=== PATIENT | female | born 2000 | race African-American/Black ===

== ENCOUNTER 2023-07-19 11:45 | Outpatient (CLI) | payer OTHER ==
[2023-07-20 01:32] LABS: BACTERIAL VAGINOSIS DNA NEGATIVE (NEGATIVE); CANDIDA GLABRATA DNA NEGATIVE (NEGATIVE); CANDIDA GROUP DNA POSITIVE (NEGATIVE); CANDIDA KRUSEI DNA NEGATIVE (NEGATIVE); TRICHOMONAS VAGINALIS DNA NEGATIVE (NEGATIVE)
== END 2023-07-19 12:00 | disposition home or self-care (01) ==
LOC: LAB.N 11:45
PROVIDERS: ATTEND Nurse Practitioner
DX: N89.8 Other specified noninflammatory disorders of vagina (principal)
CPT/HCPCS: 81514

== ENCOUNTER 2023-09-22 19:44 | Emergency (ER) | payer OTHER ==
[2023-09-22 20:02] VITALS: O2SAT 100
[2023-09-22 20:09] LABS: BASOPHILS % (AUTO) 0.5 %; EOSINOPHILS % (AUTO) 0.6 %; HGB - HEMOGLOBIN 12.7 g/dL (12.0-16.0); LYMPHOCYTES # (AUTO) 2.1 10^3/uL (1.5-3.5); LYMPHOCYTES % (AUTO) 31.7 %; MEAN CORPUSCULAR HEMOGLOBIN 29.3 pg (27.0-31.0); MEAN CORPUSCULAR HGB CONC 31.8 g/dL (32.0-36.0); MEAN CORPUSCULAR VOLUME 92.2 fL (81.0-99.0); MEAN PLATELET VOLUME 9.4 fL (7.9-10.8); MONOCYTES # (AUTO) 0.5 10^3/uL (0.0-1.0); NEUTROPHILS % (AUTO) 59.7 %; PLT - PLATELET COUNT 381 10^3/uL (130-450); RED BLOOD COUNT 4.34 10^6/uL (4.20-5.40); RED CELL DISTRIBUTION WIDTH 11.8 % (12.0-15.0); WHITE BLOOD COUNT 6.6 x10^3/uL (4.8-10.8)
[2023-09-22 20:23] LABS: BILIRUBIN,URINE NEGATIVE (NEGATIVE); GLUCOSE, URINE (UA) NEGATIVE (NEGATIVE); KETONES,URINE (UA) NEGATIVE (NEGATIVE); LEUKOCYTE ESTERASE, URINE NEGATIVE (NEGATIVE); NITRITE,URINE NEGATIVE (NEGATIVE); OCCULT BLOOD,URINE LARGE (NEGATIVE); PH,URINE 6.5 PH (5.0-7.5); PROTEIN,URINE NEGATIVE (NEGATIVE); UROBILINOGEN,URINE 1 (NORMAL) E.U./dL (NORMAL)
[2023-09-22 20:24] LABS: ALBUMIN 4.3 g/dL (3.2-5.5); ALBUMIN/GLOBULIN RATIO 1.2 (1.0-2.2); BILIRUBIN,TOTAL 0.2 mg/dL (0.2-1.0); CALCIUM 9.8 mg/dL (8.5-10.3); CREATININE 0.8 mg/dL (0.6-1.3); POTASSIUM 3.7 mmol/L (3.5-4.5); TOTAL PROTEIN 7.9 g/dL (6.4-8.9)
[2023-09-22 20:25] LABS: CLARITY,URINE HAZY (CLEAR); HCG UR QUAL NEGATIVE
[2023-09-22 20:36] LABS: BACTERIA,URINE Few /HPF (None Seen); RBC,URINE TNTC /HPF (0-5); SQUAMOUS EPITHELIAL CELL,UR FEW Squamous (<= Few)
[2023-09-22] MEDS: KETOROLAC 30 MG/ML VIAL IM STA (20:44)
--- NOTE | 2023-09-22 20:59 | ED Physician Documentation ---
History of Present Illness - Stated complaint Stated Complaint: LOWER ABD PX - Chief complaint Chief Complaint: Abd Pain - History obtained from History obtained from: Patient - Additonal information Additional information: 23yF previously healthy p/w R lower abdominal pain, pulsing intermittently and radiating to LLQ and lower back X 3 days, not improving with PO tylenol and nsaids. denies n/v/d urinary sx, fever. patient is currently menstruating. lmp 09/18. PD PAST MEDICAL HISTORY - Past Medical History Past Medical History: No Cardiovascular: None Respiratory: None Neuro: None Endocrine/Autoimmune: None GI: None [employer]AF[employer]: None : None HEENT: None Psych: None Musculoskeletal: None Derm: None - Past Surgical History Past Surgical History: No - Present Medications Home Medications: Ambulatory Orders Medication Instructions Recorded Confirmed No Known Home Medications 09/22/23 09/22/23 - Allergies Allergies/Adverse Reactions: Allergies Allergy/AdvReac Type Severity Reaction Status Date / Time No Known Drug Allergies Allergy Verified 09/22/23 19:54 - Social History Does the pt smoke?: No Smoking Status: Never smoker Does the pt drink ETOH?: No Does the pt have substance abuse?: No - Immunizations Immunizations are current?: Yes - POLST Patient has POLST: No PD ED PE NORMAL - Vitals Vital signs reviewed: Yes - General General: Alert and oriented X 3, No acute distress, Well developed/nourished - HEENT HEENT: Atraumatic, PERRL, EOMI, Moist mucous membranes, Pharynx benign - Neck Neck: Supple, no meningeal sign - Cardiac Cardiac: RRR - Respiratory Respiratory: No respiratory distress, Clear bilaterally - Abdomen Abdomen: Non tender, Non distended, Other (discomfort to suprapubic palpation) - Back Back: No CVA TTP Results - Vitals Vitals: Vital Signs - 24 hr 09/22/23 19:46 Temperature 36.7 C Heart Rate 86 Respiratory 16 Rate Blood Pressure 132/74 H O2 Saturation 100 Oxygen O2 Source Room air - Labs Labs: Laboratory Tests 09/22/23 09/22/23 09/22/23 19:00 19:00 20:05 WBC 6.6 RBC 4.34 Hgb 12.7 Hct 40.0 MCV 92.2 MCH 29.3 MCHC 31.8 L RDW 11.8 L Plt Count 381 MPV 9.4 Neut # (Auto) 4.0 Lymph # (Auto) 2.1 [place] # (Auto) 0.5 Eos # (Auto) 0.0 Baso # (Auto) 0.0 Absolute Nucleated RBC 0.00 Nucleated RBC % 0.0 Sodium Potassium Chloride Carbon Dioxide Anion Gap BUN Creatinine Estimated GFR (MDRD) Glucose Calcium Total Bilirubin AST ALT Alkaline Phosphatase Total Protein Albumin Globulin Albumin/Globulin Ratio Lipase Urine Color YELLOW Urine Clarity HAZY Urine pH 6.5 Ur Specific [place] 1.025 Urine Protein NEGATIVE Urine Glucose (UA) NEGATIVE Urine Ketones NEGATIVE Urine Occult Blood LARGE H Urine Nitrite NEGATIVE Urine Bilirubin NEGATIVE Urine Urobilinogen 1 (NORMAL) Ur Leukocyte Esterase NEGATIVE Urine RBC TNTC H Urine WBC 4-5 Ur Squamous Epith Cells FEW Squamous Urine Bacteria Few Ur Microscopic Review INDICATED Urine Culture Comments NOT INDICATED Urine HCG, Qual NEGATIVE 09/22/23 20:05 WBC RBC Hgb Hct MCV MCH MCHC RDW Plt Count MPV Neut # (Auto) Lymph # (Auto) [place] # (Auto) Eos # (Auto) Baso # (Auto) Absolute Nucleated RBC Nucleated RBC % Sodium 139 Potassium 3.7 Chloride 106 Carbon Dioxide 27 Anion Gap 6.0 BUN 14 Creatinine 0.8 Estimated GFR (MDRD) 108 Glucose 87 Calcium 9.8 Total Bilirubin 0.2 AST 13 ALT 10 Alkaline Phosphatase 78 Total Protein 7.9 Albumin 4.3 Globulin 3.6 Albumin/Globulin Ratio 1.2 Lipase 24 Urine Color Urine Clarity Urine pH Ur Specific [place] Urine Protein Urine Glucose (UA) Urine Ketones Urine Occult Blood Urine Nitrite Urine Bilirubin Urine Urobilinogen Ur Leukocyte Esterase Urine RBC Urine WBC Ur Squamous Epith Cells Urine Bacteria Ur Microscopic Review Urine Culture Comments Urine HCG, Qual PD Medical Decision Making - ED course ED course: 23yF presents with suprapubic, BL LQ pain in setting of current menses. vital signs and exam were benign. low suspicion for appendicitis, torsion or ectopic given benign abdominal exam. HCG negative. cbc, abdominal panel, and u/a were benign. If u/s is negative, plan to dc home to f/u with pcm. return precautions given. Departure - Departure Clinical Impression: Abdominal pain Condition: Stable Instructions: Abdominal Pain Comments: You were seen in the emergency department for abdominal pain. Your labs, vitals and exam were normal. Your ultrasound was normal. Please follow-up with your primary care provider and return to the emergency department if you have any new or worsening symptoms or other concerns.
--- NOTE | 2023-09-22 21:36 | Ultrasound Report ---
PROCEDURE: Pelvic w/Transvag+Doppler Comp INDICATIONS: BL LQ pain X 2-3 days TECHNIQUE: Real-time scanning was performed of the pelvic organs, with image documentation. Additional endovagi nal scanning was necessary due to incomplete visualization of the adnexal and endometrial structures by transabdominal scanning. Doppler interrogation was performed of the ovaries bilaterally. COMPARISON: None. FINDINGS: Uterus: Uterus is anteverted and normal in size at 7.4 x 3.6 x 4.7 cm. The myometrium is homogeneou s. The endometrium measures 3.9 mm in combined thickness. No uterine fibroids Ovaries: The right ovary measures 3.9 x 2.7 x 3.3 cm, with a calculated ovarian volume of 17.9 cc. The left ovary measures 3.6 x 1.7 x 2.8 cm, with a calculated ovarian volume of 9.0 cc. Appropriate blood flow to the ovaries with Doppler interrogation. Less than 12 follicles can be seen in each ov toni. No adnexal masses are seen. No cystic lesions measuring greater than 3 cm. Arterial and venous flow is seen to the bilateral ovaries. Other: No pathologic free abdominal or pelvic fluid. IMPRESSION: No evidence of ovarian torsion at this time. No acute findings to explain patient's symptoms. Reviewed by: Mark Vazquez MD on 09/22/2023 9:34 PM PST Approved by: Mark Vazquez MD on 09/22/2023 9:34 PM PST Station ID: [id number]
[2023-09-22 22:20] VITALS: BP 132/76
== END 2023-09-22 22:16 | disposition home or self-care (01) ==
LOC: ED 19:44
DX: R10.31 Right lower quadrant pain (principal); R10.32 Left lower quadrant pain
CPT/HCPCS: 36415; 80053; 81001; 81003; 81025; 83690; 85025; 87086; 93975; 96372; 99283; 99284